=== PATIENT | male | born 1995 | race Asian ===

== ENCOUNTER 2020-10-06 10:57 | Emergency (ER) | payer OTHER ==
[~2020-10-06] VITALS: Ht 177.8 cm; Wt 100.0 kg
[2020-10-06] MEDS ORDERED: KETOROLAC 30MG/ML VIAL IV STA (11:17)
[2020-10-06] MEDS ORDERED: ONDANSETRON HCL 4MG/2ML INJ IV STA (11:17)
[2020-10-06] MEDS ORDERED: FAMOTIDINE 20MG/2ML VIAL IV ONE (11:30)
[2020-10-06] MEDS ORDERED: SODIUM CHLORIDE 0.9% 1,000 ML IV ONE (11:30)
[2020-10-06 11:49] LABS: BASOPHILS % 0.6 % (0.0-2.0); EOSINOPHILS % 0.3 % (0.0-5.0); HEMATOCRIT. 47.6 % (42.0-52.0); HEMOGLOBIN. 15.8 g/dL (14.0-18.0); LYMPHOCYTES % 15.2 % (20.0-50.0); MEAN CORPUSCULAR HEMOGLOBIN 31.4 pg (28.0-32.0); MEAN CORPUSCULAR VOLUME 94.4 fL (80.0-94.0); MEAN PLATELET VOLUME 8.9 fl (7.4-10.4); MONOCYTES % 7.6 % (2.0-8.0); NEUTROPHILS % 76.3 % (40.0-76.0); PLATELET 282 x1000/uL (130-400); RED BLOOD CELL COUNT 5.04 mill/uL (4.7-6.1); RED CELL DISTRIBUTION WIDTH 13.1 % (11.6-14.6)
[2020-10-06 11:57] LABS: CHLORIDE 106 mEq/L (98-107)
[2020-10-06] MEDS ORDERED: ONDANSETRON HCL 4MG/2ML INJ IV ONE (12:45)
[2020-10-06] MEDS ORDERED: LORAZEPAM 0.5MG TABLET PO ONE (12:45)
[2020-10-06] MEDS ORDERED: MAGNESIUM/ALUMINUM HYDROXIDE/SIMETHICONE 30ML UDC PO ONE (13:15)
[2020-10-06] MEDS ORDERED: MORPHINE SULFATE 10 MG/ML CPJ IM ONE (14:00)
[2020-10-06] MEDS ORDERED: MORPHINE SULFATE 10 MG/ML CPJ IM NR (14:20)
[2020-10-06 14:40] VITALS: BP 133/87
== END 2020-10-06 14:43 | disposition home or self-care (01) ==
LOC: ER 10:57
DX: R10.9 Unspecified abdominal pain (principal); R11.2 Nausea with vomiting, unspecified
CPT/HCPCS: 36415; 80053; 83690; 85025; 93005; 96361; 96374; 96375; 96376; 99284; J1885; J2405; J3490; J7030

== ENCOUNTER 2020-10-07 10:14 | Emergency (ER) | payer OTHER ==
[~2020-10-07] VITALS: Ht 177.8 cm; Wt 100.0 kg
[2020-10-07] MEDS ORDERED: ONDANSETRON 4MG ODT PO STA (10:21)
[2020-10-07] MEDS ORDERED: MORPHINE SULFATE 10 MG/ML CPJ IM ONE (10:30)
[2020-10-07 10:52] LABS: BASOPHILS % 0.7 % (0.0-2.0); EOSINOPHILS % 0.6 % (0.0-5.0); HEMATOCRIT. 47.4 % (42.0-52.0); HEMOGLOBIN. 15.9 g/dL (14.0-18.0); LYMPHOCYTES % 24.4 % (20.0-50.0); MEAN CORPUSCULAR HEMOGLOBIN 31.6 pg (28.0-32.0); MEAN CORPUSCULAR VOLUME 94.4 fL (80.0-94.0); MEAN PLATELET VOLUME 8.6 fl (7.4-10.4); MONOCYTES % 7.2 % (2.0-8.0); NEUTROPHILS % 67.1 % (40.0-76.0); PLATELET 245 x1000/uL (130-400); RED BLOOD CELL COUNT 5.02 mill/uL (4.7-6.1); RED CELL DISTRIBUTION WIDTH 12.8 % (11.6-14.6)
[2020-10-07 10:58] LABS: CHLORIDE 109 mEq/L (98-107)
[2020-10-07] MEDS ORDERED: HYDROCODONE/ACETAMINOPHEN 5/325MG TABLET PO ONE (13:15)
[2020-10-07] MEDS ORDERED: ONDANSETRON 4MG ODT PO ONE (14:00)
[2020-10-07 14:30] VITALS: BP 162/94
== END 2020-10-07 14:44 | disposition home or self-care (01) ==
LOC: ER 10:20
DX: R10.13 Epigastric pain (principal); R11.2 Nausea with vomiting, unspecified
CPT/HCPCS: 36415; 71045; 74176; 80053; 83690; 85025; 93005; 99285; Q0162